=== PATIENT | male | born 1965 | race Caucasian/White ===

== ENCOUNTER 2017-08-04 00:56 | Emergency (ER) | payer OTHER, SELFPAY ==
[~2017-08-04] VITALS: Ht 170.2 cm; Wt 69.6 kg
[2017-08-04 03:27] VITALS: BP 149/94
== END 2017-08-04 03:38 | disposition home or self-care (01) ==
LOC: ED 03:10
DX: J20.9 Acute bronchitis, unspecified (principal); J00 Acute nasopharyngitis [common cold]
CPT/HCPCS: 71046; 99284; J7512